=== PATIENT | male | born 1995 | race Hispanic/Latino ===

== ENCOUNTER 2018-06-19 20:30 | Emergency (ER) | payer BC ==
[2018-06-19 20:35] VITALS: BP 152/83; PULSE 92; RESP 18; TEMP 98.2; O2SAT 100
[2018-06-19] MEDS ORDERED: Absorbable Gelatin Sponge Size 12-7 ONE (20:51)
[2018-06-19] MEDS ORDERED: Absorbable Gelatin Sponge Size 12-7 TP ONE (21:07)
[2018-06-19] MEDS ORDERED: Tdap Vaccine 0.5 ml Vial (10-64 yrs) IM ONE ×2 (21:12→21:24)
--- NOTE | 2018-06-19 21:39 | ED PDOC ---
Upper Extremity Pain/Injury Time Seen by Provider: 06/19/18 20:31 Chief Complaint (Nursing): Abnormal Skin Integrity Chief Complaint (Provider): Abnormal Skin Integrity History Per: Patient History/Exam Limitations: no limitations Onset/Duration Of Symptoms: Mins Current Symptoms Are (Timing): Still Present Additional Complaint(s): 22 y/o male presents to the ED for evaluation of a left thumb injury. Patient reports he was slicing cheese when he accidentally sliced the lateral distal thumb off prior to arrival. PMD: none provided Unknown last tetanus vaccination Past Medical History Reviewed: Historical Data, Nursing Documentation, Vital Signs Vital Signs: Last Vital Signs Temp 98.2 F 06/19/18 20:33 Pulse 92 H 06/19/18 20:33 Resp 18 06/19/18 20:33 BP 152/83 H 06/19/18 20:33 Pulse Ox 100 06/19/18 20:33 - Medical History PMH: No Chronic Diseases - Surgical History Surgical History: No Surg Hx - Family History Family History: States: Unknown Family Hx - Home Medications Home Medications: Ambulatory Orders Medication Instructions Recorded RX: Clindamycin [Cleocin] 300 mg PO QID #40 cap 06/19/18 RX: traMADol [Ultram] 50 mg PO Q6H PRN #15 tab 06/19/18 - Allergies Allergies/Adverse Reactions: Allergies Allergy/AdvReac Type Severity Reaction Status Date / Time peanut Allergy RASH Verified 06/19/18 20:35 Review of Systems ROS Statement: Except As Marked, All Systems Reviewed And Found Negative Musculoskeletal: Positive for: Hand Pain (left thumb injury) Physical Exam - Reviewed Nursing Documentation Reviewed: Yes Vital Signs Reviewed: Yes - Physical Exam Appears: Positive for: No Acute Distress Head Exam: Positive for: ATRAUMATIC, NORMOCEPHALIC Skin: Positive for: Normal Color, Warm, Dry Eye Exam: Positive for: Normal appearance Neck: Positive for: Normal Cardiovascular/Chest: Negative for: Bradycardia, Tachycardia Respiratory: Negative for: Accessory Muscle Use, Respiratory Distress Extremity: Positive for: Other (Left lateral distal thumb evulsion with active bleeding. No bone exposure. ) Neurologic/Psych: Positive for: Alert, Oriented (x3). Negative for: Motor/Sensory Deficits - ECG O2 Sat by Pulse Oximetry: 100 (RA) Pulse Ox Interpretation: Normal Medical Decision Making Medical Decision Making: Time: 2111 Plan: -- Tramadol 50 mg PO -- Gelfoam Size 12-7 2 spg TP -- Adacel (10-64 yrs) 0.5 ml IM -- Gelfoam applied with pressure dressing. Pt monitored in ER. On re-evaluation no bleeding through dressing. Scribe Attestation: Documented by Manjeet Pinzon, acting as a scribe for Yissel Romo PA-C. Provider Scribe Attestation: All medical record entries made by the Scribe were at my direction and personal ly dictated by me. I have reviewed the chart and agree that the record accurately reflects my personal performance of the history, physical exam, medical decision making, and the department course for this patient. I have also personally directed, reviewed, and agree with the discharge instructions and disposition. Disposition - Clinical Impression Clinical Impression: Skin avulsion - Disposition Referrals: Jeremy Loera MD [Medical Doctor] - Disposition: Routine/Home Disposition Time: 22:00 Condition: STABLE Prescriptions: RX: Clindamycin [Cleocin] 300 mg PO QID #40 cap RX: traMADol [Ultram] 50 mg PO Q6H PRN #15 tab PRN Reason: Pain Instructions: Nail Avulsion Forms: [employer] (Telugu)
== END 2018-06-19 22:13 | disposition home or self-care (01) ==
LOC: H.ER 20:30
DX: S61.012A Laceration without foreign body of left thumb without damage to nail, initial encounter (principal); W26.8XXA Contact with other sharp object(s), not elsewhere classified, initial encounter; Y92.89 Other specified places as the place of occurrence of the external cause